=== PATIENT | female | born 1990 ===

== ENCOUNTER 2018-10-26 13:36 | Inpatient (IN) | payer SELFPAY ==
[~2018-10-26] VITALS: Ht 162.6 cm; Wt 80.3 kg
[2018-10-26] MEDS ORDERED: NALT50TA6 PO (13:51)
[2018-10-26] MEDS ORDERED: GABA-531 PO (13:51)
[2018-10-26] MEDS ORDERED: PALI234D IM (13:51)
[2018-10-26] MEDS ORDERED: QUET25TA PO (13:51)
[2018-10-26] MEDS ORDERED: LITH600 PO (13:51)
[2018-10-26 14:38] LABS: BASOPHILS % (AUTO) 0.6 % (0.0-2.0); EOSINOPHILS % (AUTO) 3.2 % (1.0-6.0); HEMATOCRIT 40.2 % (36-46); HEMOGLOBIN 13.1 g/dL (12.0-16.0); LYMPHOCYTES # (AUTO) 1.6 K/uL (1.0-4.8); LYMPHOCYTES % (AUTO) 18.3 % (22.0-44.0); MEAN CORPUSCULAR HEMOGLOBIN 32.6 pg (26.0-34.0); MEAN CORPUSCULAR HGB CONC 32.7 G/dL (31.0-37.0); MEAN CORPUSCULAR VOLUME 100 fL (80-100); MONOCYTES # (AUTO) 0.4 K/uL (0.1-1.0); MONOCYTES % (AUTO) 5.2 % (2.0-9.0); NEUTROPHILS # (AUTO) 6.2 K/uL (1.8-7.7); NEUTROPHILS % (AUTO) 72.7 % (40.0-70.0); PLATELET COUNT (AUTO) 360 K/uL (150-450); RED BLOOD CELL COUNT(AUTO) 4.03 MIL/uL (4.00-5.20); RED CELL DISTRIBUTION WIDTH 12.2 % (11.5-14.5)
[2018-10-26 14:50] LABS: ANION GAP 9 mmol/L (8-16); CALCIUM, TOTAL 9.1 mg/dL (8.8-10.5); CARBON DIOXIDE 28 mmol/L (22-29); CHLORIDE 106 mmol/L (98-107); CREATININE 0.93 mg/dL (0.60-1.30); GLOMERULAR FILTR. RATE CALC > 60 mL/min (>60); GLUCOSE,RANDOM 83 mg/dL (70-110); POTASSIUM 3.8 mmol/L (3.5-5.1); SODIUM SERUM 143 mmol/L (136-145); UREA NITROGEN, BLOOD 6 mg/dL (7-18)
[2018-10-26 14:56] LABS: ALANINE AMINOTRANSFERASE 7 U/L (12-78); ALBUMIN 4.2 g/dL (3.4-5.0); ALKALINE PHOSPHATASE 74 U/L (46-116); ASPARTATE AMINOTRANSFERASE 12 U/L (15-37); BILIRUBIN,TOTAL 0.3 mg/dL (0.1-1.0); TOTAL PROTEIN, SERUM 7.3 g/dL (6.4-8.2)
[2018-10-26 15:55] LABS: LITHIUM 0.84 mmol/L (0.60-1.20)
[2018-10-26 16:15] LABS: AMPHET/METH SCREEN,URINE NEGATIVE (NEGATIVE); BARBITURATE SCREEN, URINE NEGATIVE (NEGATIVE); BENZODIAZEPINES SCREEN,URINE NEGATIVE (NEGATIVE); CANNABINOID SCREEN,URINE POSITIVE (NEGATIVE); COCAINE SCREEN,URINE NEGATIVE (NEGATIVE); METHADONE SCREEN, URINE NEGATIVE (NEGATIVE); OPIATE SCREEN,URINE NEGATIVE (NEGATIVE)
[2018-10-26 16:17] LABS: PHENCYCLIDINE SCREEN,URINE NEGATIVE (NEGATIVE)
[2018-10-26] MEDS ORDERED: LORazepam 2 MG TABLET PO PRN (18:30)
[2018-10-26] MEDS ORDERED: HALOPERIDOL 5 MG TABLET PO PRN (18:30)
[2018-10-26] MEDS ORDERED: ZOLPIDEM TARTRATE 10 MG TABLET PO PRN (18:30)
[2018-10-26] MEDS ORDERED: HALOPERIDOL LACTATE 5 MG/ML VIAL IM ONE (19:00)
[2018-10-26] MEDS ORDERED: DiphenhydrAMINE HCL 50 MG/ML VIAL IM ONE (19:00)
[2018-10-26] MEDS ORDERED: LORazepam 2 MG/ML VIAL IM ONE (19:00)
[2018-10-26] MEDS: LITHIUM CARBONATE 600 MG CAPSULE PO SCH (21:00)
[2018-10-26] MEDS: QUEtiapine FUMARATE 100 MG TABLET PO SCH (21:00)
[2018-10-26] MEDS: GABAPENTIN 300 MG CAPSULE PO SCH (21:00)
[2018-10-27 07:24] LABS: BASOPHILS % (AUTO) 0.9 % (0.0-2.0); EOSINOPHILS % (AUTO) 4.8 % (1.0-6.0); HEMATOCRIT 37.3 % (36-46); HEMOGLOBIN 12.1 g/dL (12.0-16.0); LYMPHOCYTES # (AUTO) 1.9 K/uL (1.0-4.8); LYMPHOCYTES % (AUTO) 28.2 % (22.0-44.0); MEAN CORPUSCULAR HEMOGLOBIN 32.5 pg (26.0-34.0); MEAN CORPUSCULAR HGB CONC 32.5 G/dL (31.0-37.0); MEAN CORPUSCULAR VOLUME 100 fL (80-100); MONOCYTES # (AUTO) 0.6 K/uL (0.1-1.0); NEUTROPHILS # (AUTO) 3.8 K/uL (1.8-7.7); NEUTROPHILS % (AUTO) 57.1 % (40.0-70.0); PLATELET COUNT (AUTO) 330 K/uL (150-450); RED BLOOD CELL COUNT(AUTO) 3.73 MIL/uL (4.00-5.20)
[2018-10-27 07:56] LABS: ALANINE AMINOTRANSFERASE 7 U/L (12-78); ALBUMIN 3.5 g/dL (3.4-5.0); ALKALINE PHOSPHATASE 64 U/L (46-116); ANION GAP 9 mmol/L (8-16); ASPARTATE AMINOTRANSFERASE 11 U/L (15-37); CALCIUM, TOTAL 9.1 mg/dL (8.8-10.5); CARBON DIOXIDE 25 mmol/L (22-29); CHLORIDE 106 mmol/L (98-107); CHOL/HDL RATIO 3.1 (3.9-5.7); CHOLESTEROL 129 mg/dL (131-200); FREE T4 (FREE THYROXINE) 0.61 ng/dL (0.76-1.46); GLOMERULAR FILTR. RATE CALC > 60 mL/min (>60); GLUCOSE,RANDOM 93 mg/dL (70-110); HCG,QUANTITATIVE < 1 mIU/mL (0-6); HDL CHOLESTEROL 41 mg/dL (40-60); LDL CHOL (CALC.) 77 mg/dL (0-130); POTASSIUM 4.1 mmol/L (3.5-5.1); SODIUM SERUM 140 mmol/L (136-145); THYROID STIMULATING HORMONE 9.96 uIU/mL (0.36-3.74); TOTAL PROTEIN, SERUM 6.1 g/dL (6.4-8.2); TRIGLYCERIDES 53 mg/dL (15-150); UREA NITROGEN, BLOOD 9 mg/dL (7-18)
[2018-10-27] MEDS ORDERED: MAGNESIUM HYDROXIDE SUSPENSION 30 ML UDCUP PO PRN (08:00)
[2018-10-27] MEDS ORDERED: IBUPROFEN 400 MG TABLET PO PRN (08:00)
[2018-10-27] MEDS ORDERED: ALBUTEROL SULFATE HFA 90 MCG/PUFF 8 GM INHALER IH PRN (08:00)
[2018-10-27] MEDS ORDERED: ONDANSETRON HCL 4 MG TABLET PO PRN (08:00)
[2018-10-27] MEDS ORDERED: MAG HYDROX/AL HYDROX/SIMETH ES 30 ML SUSPENSION UDCUP PO PRN (08:00)
[2018-10-27] MEDS ORDERED: GuaiFENesin/D-METHORPHAN [SUGAR-FREE] 200-20MG/10 ML SYRUP UDCUP PO PRN (08:00)
[2018-10-27] MEDS ORDERED: PETROLATUM,WHITE 28 GM JELLY TP PRN (08:00)
[2018-10-27] MEDS ORDERED: LOPERAMIDE HCL 2 MG CAPSULE PO PRN (08:00)
[2018-10-27] MEDS ORDERED: NICOTINE 14 MG/24 HOUR PATCH TD PRN (08:00)
[2018-10-27] MEDS ORDERED: DOCUSATE SODIUM 100 MG CAPSULE PO PRN (08:00)
[2018-10-27] MEDS ORDERED: ACETAMINOPHEN 325 MG TABLET PO PRN (08:00)
[2018-10-27] MEDS ORDERED: CloNIDine HCL 0.1 MG TABLET PO PRN (08:00)
[2018-10-27 08:06] LABS: BILIRUBIN,TOTAL 0.3 mg/dL (0.1-1.0)
[2018-10-27 08:34] VITALS: BP 119/78
[2018-10-27] MEDS: GABAPENTIN 300 MG CAPSULE PO SCH ×2 (08:51→16:17)
[2018-10-27] MEDS: LITHIUM CARBONATE 600 MG CAPSULE PO SCH ×2 (08:51→16:17)
[2018-10-27] MEDS: OLANZapine 10 MG RAPDIS TABLET PO SCH ×2 (10:21→16:17)
[2018-10-27 16:23] VITALS: BP 105/69
[2018-10-27] MEDS: QUEtiapine FUMARATE 100 MG TABLET PO SCH (20:38)
[2018-10-28 01:41] VITALS: BP 112/74
[2018-10-28] MEDS: LEVOTHYROXINE SODIUM 50 MCG TABLET PO SCH (06:34)
[2018-10-28] MEDS: GABAPENTIN 300 MG CAPSULE PO SCH ×2 (08:30→16:47)
[2018-10-28] MEDS: OLANZapine 10 MG RAPDIS TABLET PO SCH ×2 (08:30→16:47)
[2018-10-28] MEDS: LITHIUM CARBONATE 600 MG CAPSULE PO SCH ×2 (08:30→16:47)
[2018-10-28 16:00] VITALS: BP 109/68
[2018-10-28] MEDS: QUEtiapine FUMARATE 100 MG TABLET PO SCH (20:14)
[2018-10-29 06:22] VITALS: BP 116/69
[2018-10-29] MEDS: LEVOTHYROXINE SODIUM 50 MCG TABLET PO SCH (06:36)
[2018-10-29] MEDS: GABAPENTIN 300 MG CAPSULE PO SCH ×2 (08:11→16:13)
[2018-10-29] MEDS: LITHIUM CARBONATE 600 MG CAPSULE PO SCH ×2 (08:11→16:13)
[2018-10-29] MEDS: OLANZapine 10 MG RAPDIS TABLET PO SCH ×2 (08:11→16:13)
[2018-10-29 16:23] VITALS: BP 119/80
[2018-10-29] MEDS: QUEtiapine FUMARATE 100 MG TABLET PO SCH (20:30)
[2018-10-30] MEDS: LEVOTHYROXINE SODIUM 50 MCG TABLET PO SCH (06:16)
[2018-10-30] MEDS: LITHIUM CARBONATE 600 MG CAPSULE PO SCH ×2 (09:17→16:33)
[2018-10-30] MEDS: OLANZapine 10 MG RAPDIS TABLET PO SCH ×2 (09:17→16:33)
[2018-10-30] MEDS: GABAPENTIN 300 MG CAPSULE PO SCH ×2 (09:17→16:33)
[2018-10-30 09:52] VITALS: BP 113/73
[2018-10-30] MEDS ORDERED: OLAN10TA20 PO (12:55)
[2018-10-30] MEDS ORDERED: LEVO50TA11 PO (12:55)
[2018-10-30] MEDS ORDERED: GABA600T10 PO (12:55)
[2018-10-30] MEDS ORDERED: QUET100T PO (12:55)
[2018-10-30 16:25] VITALS: BP 115/79
== END 2018-10-30 17:15 | disposition home or self-care (01) | DRG 885 ==
LOC: EMS 13:39 → B3A 20:00
PROVIDERS: ADMIT Psychiatry & Neurology Child & Adolescent Psychiatry; ATTEND Psychiatry & Neurology Child & Adolescent Psychiatry
DX: F25.9 Schizoaffective disorder, unspecified (principal); E03.9 Hypothyroidism, unspecified; F12.90 Cannabis use, unspecified, uncomplicated; F19.10 Other psychoactive substance abuse, uncomplicated; F41.9 Anxiety disorder, unspecified; F17.210 Nicotine dependence, cigarettes, uncomplicated; F31.9 Bipolar disorder, unspecified; Z78.1 Physical restraint status; Z71.51 Drug abuse counseling and surveillance of drug abuser; Z79.899 Other long term (current) drug therapy; Z79.890 Hormone replacement therapy
CPT/HCPCS: 83036; 84439; 84443; G0480; J1200; J1630; J2060